=== PATIENT | male | born 1990 ===

== ENCOUNTER 2021-04-07 20:15 | Inpatient (IN) | payer BC ==
[2021-04-07] MEDS ORDERED: Sodium Chloride 0.9% 1,000 ML IV STA (20:34)
[2021-04-07] MEDS ORDERED: Sodium Chloride 0.9% 10 ML Syringe FLUSH PRN (20:34)
[2021-04-07] MEDS ORDERED: Ondansetron 4 MG/2 ML SDV IVPUSH ONE (20:34)
[2021-04-07] MEDS ORDERED: HYDROmorphone 1 MG/ML Syringe IVPUSH ONE (20:36)
--- NOTE | 2021-04-07 20:45 | EDM.PDOC ---
ED HPI GENERAL MEDICAL PROBLEM - General Chief Complaint: Abdominal Pain Stated Complaint: STOMACH PAIN/ BACK PAIN Time Seen by Provider: 04/07/21 20:21 Source of Information: Reports: Patient, Family History Limitations: Reports: No Limitations - History of Present Illness INITIAL COMMENTS - FREE TEXT/NARRATIVE: The patient presents with right upper abdominal pain. This has been going on for about a month. He has had 3 bad episodes. His pain tonight is 10/10. He tried eating some oatmeal and he vomited after that. He thought it may have been constipation. He has been drinking lots of water and taking a stool softener but that did not help. He has no fever, chills, cough, chest pain, shortness of breath, diarrhea or dysuria. He still has his appendix and gallbla dder. Onset: Gradual Duration: Week(s): (4) Location: Reports: Abdomen Quality: Reports: Sharp Severity: Severe Improves with: Reports: None Worsens with: Reports: None Associated Symptoms: Reports: Nausea/Vomiting. Denies: Chest Pain, Cough, Fever/Chills, Headaches, Shortness of Breath Right Upper Abdomen Pain Score (Numeric/FACES): 10 - Related Data Allergies Allergy/AdvReac Type Severity Reaction Status Date / Time amoxicillin Allergy Cannot Verified 04/07/21 20:29 Remember Home Meds: Home Meds Escitalopram Oxalate [Lexapro] 10 mg PO DAILY 04/07/21 [History] Lactobacillus Acidophilus [Probiotic] 1 each PO DAILY 04/07/21 [History] Multivitamin 1 each PO DAILY 04/07/21 [History] Past Medical History - Past Health History Medical/Surgical History: Denies Medical/Surgical History Psychiatric History: Reports: Anxiety, Depression Social & Family History - Tobacco Use Tobacco Use Status *Q: Unknown Ever Used Tobacco Second Hand Smoke Exposure: No - Recreational Drug Use Recreational Drug Use: No ED ROS GENERAL - Review of Systems Review Of Systems: See Below Constitutional: Reports: No Symptoms HEENT: Reports: No Symptoms Respiratory: Reports: No Symptoms Cardiovascular: Reports: No Symptoms Endocrine: Reports: No Symptoms GI/Abdominal: Reports: Abdominal Pain, Nausea, Vomiting. Denies: Diarrhea : Reports: No Symptoms Musculoskeletal: Reports: No Symptoms ED EXAM, GI/ABD - Physical Exam Exam: See Below Exam Limited By: No Limitations General Appearance: Alert, No Apparent Distress Ears: Normal External Exam Nose: Normal Inspection Head: Atraumatic, Normocephalic Neck: Normal Inspection Respiratory/Chest: No Respiratory Distress, Lungs Clear, Normal Breath Sounds Cardiovascular: Regular Rate, Rhythm, No Edema, No Murmur GI/Abdominal Exam: Soft, No Organomegaly, No Mass, Tender (Moderate tenderness to the right upper abdomen) Extremities: Normal Inspection Course - Vital Signs Last Recorded V/S: Last Vital Signs Temp 96.9 F 04/07/21 20:21 Pulse 84 04/07/21 20:21 Resp 18 04/07/21 20:21 BP 163/110 H 04/07/21 20:21 Pulse Ox 97 04/07/21 20:21 - Orders/Labs/Meds Orders: Active Orders 24 hr Category Date Time Status Accu Check [Blood Glucose Check, Bedside] [RC] ONETIME Care 04/08/21 00:00 Active Peripheral IV Care [RC] . DIRECTED Care 04/07/21 20:34 Active Abdomen Ltd [US] Stat Exams 04/07/21 20:34 Taken Abdomen Pelvis wo Cont [CT] Stat Exams 04/07/21 22:56 Taken CORONAVIRUS COVID-19 RENATA [MOLEC] Stat Lab 04/08/21 00:29 Ordered LIPID PANEL [CHEM] Stat Lab 04/08/21 00:36 Ordered TSH [CHEM] Stat Lab 04/08/21 00:27 Ordered Insulin Regular, Human [HumuLIN R] 100 unit Med 04/08/21 01:00 Ordered Sodium Chloride 0.9% [Normal Saline] 99 ml IV TITRATE Sodium Chloride 0.9% [Saline Flush] Med 04/07/21 20:34 Active 10 ml FLUSH ASDIRECTED PRN ED Antiemetic Medication Reflex [OM.PC] Stat Oth 04/07/21 20:35 Ordered Peripheral IV Insertion Adult [OM.PC] Stat Oth 04/07/21 20:34 Ordered Medication Orders Insulin Human Regular 100 unit (/ Sodium Chloride) 100 mls @ 2 mls/hr IV TITRATE ANAMARIA; Protocol Sodium Chloride (Sodium Chloride 0.9% 10 Ml Syringe) 10 ml FLUSH ASDIRECTED PRN PRN Reason: Keep Vein Open Last Admin: 04/07/21 20:51 Dose: 10 ml Documented by: JASBIR Labs: Laboratory Tests 04/07/21 04/07/21 04/07/21 Range/Units 20:41 20:41 20:41 WBC 9.82 H (4.23-9.07) K/mm3 RBC 5.00 (4.63-6.08) M/mm3 Hgb 18.1 H (13.7-17.5) gm/dl Hct 42.2 (40.1-51.0) % MCV 84.4 (79.0-92.2) fl MCH 36.2 H (25.7-32.2) pg MCHC 42.9 H (32.2-35.5) g/dl RDW Std Deviation 40.9 (35.1-43.9) fL Plt Count 329 (163-337) K/mm3 MPV 10.2 (9.4-12.3) fl Neut % (Auto) 69.8 H (34.0-67.9) % Lymph % (Auto) 6.4 L (21.8-53.1) % [place] % (Auto) 21.4 H (5.3-12.2) % Eos % (Auto) 1.7 (0.8-7.0) Baso % (Auto) 0.4 (0.1-1.2) % Neut # (Auto) 6.85 H (1.78-5.38) K/mm3 Lymph # (Auto) 0.63 L (1.32-3.57) K/mm3 [place] # (Auto) 2.10 H (0.30-0.82) K/mm3 Eos # (Auto) 0.17 (0.04-0.54) K/mm3 Baso # (Auto) 0.04 (0.01-0.08) K/mm3 Manual Slide Review Abnormal smear VBG pH (7.30-7.40) Sodium 126 L (136-145) mEq/L Potassium 3.7 (3.5-5.1) mEq/L Chloride 90 L (98-107) mEq/L Carbon Dioxide TNP Anion Gap TNP BUN TNP Creatinine TNP Est Cr Clr Drug Dosing TNP Estimated GFR (MDRD) TNP BUN/Creatinine Ratio TNP Glucose 471 H* (70-99) mg/dL POC Glucose (70-99) mg/dL Hemoglobin A1c TNP Calcium TNP Total Bilirubin TNP AST TNP ALT TNP Alkaline Phosphatase TNP Total Protein TNP Albumin TNP Globulin TNP Albumin/Globulin Ratio TNP Lipase 643 H (73-393) U/L Urine Color (Yellow) Urine Appearance (Clear) Urine pH (5.0-8.0) Ur Specific [place] (1.005-1.030) Urine Protein (Negative) Urine Glucose (UA) (Negative) Urine Ketones (Negative) Urine Occult Blood (Negative) Urine Nitrite (Negative) Urine Bilirubin (Negative) Urine Urobilinogen (0.2-1.0) Ur Leukocyte Esterase (Negative) U Hyaline Cast (Auto) (0-5) /lpf Urine RBC (0-5) /hpf Urine WBC (0-5) /hpf Ur Squamous Epith Cells (0-5) /hpf Amorphous Sediment (NOT SEEN) /hpf Urine Bacteria (FEW) /hpf Urine Mucus (FEW) /hpf 04/07/21 04/07/21 04/08/21 Range/Units 20:43 23:40 00:21 WBC (4.23-9.07) K/mm3 RBC (4.63-6.08) M/mm3 Hgb (13.7-17.5) gm/dl Hct (40.1-51.0) % MCV (79.0-92.2) fl MCH (25.7-32.2) pg MCHC (32.2-35.5) g/dl RDW Std Deviation (35.1-43.9) fL Plt Count (163-337) K/mm3 MPV (9.4-12.3) fl Neut % (Auto) (34.0-67.9) % Lymph % (Auto) (21.8-53.1) % [place] % (Auto) (5.3-12.2) % Eos % (Auto) (0.8-7.0) Baso % (Auto) (0.1-1.2) % Neut # (Auto) (1.78-5.38) K/mm3 Lymph # (Auto) (1.32-3.57) K/mm3 [place] # (Auto) (0.30-0.82) K/mm3 Eos # (Auto) (0.04-0.54) K/mm3 Baso # (Auto) (0.01-0.08) K/mm3 Manual Slide Review VBG pH 7.37 (7.30-7.40) Sodium (136-145) mEq/L Potassium (3.5-5.1) mEq/L Chloride (98-107) mEq/L Carbon Dioxide Anion Gap BUN Creatinine Est Cr Clr Drug Dosing Estimated GFR (MDRD) BUN/Creatinine Ratio Glucose (70-99) mg/dL POC Glucose 246 H (70-99) mg/dL Hemoglobin A1c Calcium Total Bilirubin AST ALT Alkaline Phosphatase Total Protein Albumin Globulin Albumin/Globulin Ratio Lipase (73-393) U/L Urine Color Yellow (Yellow) Urine Appearance Clear (Clear) Urine pH 5.5 (5.0-8.0) Ur Specific [place] > or = 1.030 (1.005-1.030) Urine Protein 2+ H (Negative) Urine Glucose (UA) 2+ H (Negative) Urine Ketones 1+ H (Negative) Urine Occult Blood Trace-intact H (Negative) Urine Nitrite Negative (Negative) Urine Bilirubin Negative (Negative) Urine Urobilinogen 0.2 (0.2-1.0) Ur Leukocyte Esterase Negative (Negative) U Hyaline Cast (Auto) 0-5 (0-5) /lpf Urine RBC 5-10 H (0-5) /hpf Urine WBC 0-5 (0-5) /hpf Ur Squamous Epith Cells 0-5 (0-5) /hpf Amorphous Sediment Few H (NOT SEEN) /hpf Urine Bacteria Few (FEW) /hpf Urine Mucus Few (FEW) /hpf Meds: Medications Generic Name Dose Route Start Last Admin Trade Name Freq PRN Reason Stop Dose Admin Insulin Human Regular 100 unit 100 mls @ 2 mls/hr 04/08/21 01:00 / Sodium Chloride IV TITRATE ANAMARIA Protocol 2 UNIT/HR Sodium Chloride 10 ml 04/07/21 20:34 04/07/21 20:51 Sodium Chloride 0.9% 10 Ml Syringe FLUSH 10 ml ASDIRECTED PRN Administration Keep Vein Open Discontinued Medications Generic Name Dose Route Start Last Admin Trade Name Freq PRN Reason Stop Dose Admin Hydromorphone HCl 1 mg 04/07/21 20:36 04/07/21 20:50 Hydromorphone 1 Mg/Ml Syringe IVPUSH 04/07/21 20:37 1 mg ONETIME ONE Administration Hydromorphone HCl 1 mg 04/08/21 00:15 04/08/21 00:22 Hydromorphone 1 Mg/Ml Syringe IVPUSH 04/08/21 00:16 1 mg ONETIME ONE Administration Sodium Chloride 1,000 mls @ 1,000 mls/hr 04/07/21 20:34 04/07/21 20:49 Normal Saline IV 04/07/21 21:33 1,000 mls/hr .BOLUS STA Administration Insulin Human Regular 10 unit 04/07/21 22:56 04/07/21 23:19 Insulin Regular, Human 100 Units/Ml 3 Ml Vial SUBCUT 04/07/21 22:57 10 unit ONETIME ONE Administration Ondansetron HCl 4 mg 04/07/21 20:34 04/07/21 20:49 Ondansetron 4 Mg/2 Ml Sdv IVPUSH 04/07/21 20:35 4 mg ONETIME ONE Administration - Re-Assessments/Exams Free Text/Narrative Re-Assessment/Exam: 04/07/21 20:46 I ordered an IV NS 1L bolus, zofran 4mg IV, dilaudid 1mg IV, labs, UA and an US of his gallbladder. 04/07/21 23:13 Lab called and they said his blood is severely lypemic and they are not sure if they can run all the labs. His WBC was slightly elevated at 9.82. His Na was low at 126. His K was normal at 3.7. His glucose was very high at 471. His lipase was elevated at 643. His US shows hepatomegaly and diffuse hepatic steatosis. No other acute pathology is appreciated, within the limits of this examination. I have ordered a glycosilated hemoglobin. They called and said they cannot get that. He has new onset type II diabetes. I will give him insulin R 10 units subcutaneous. I have also ordered a CT of his abdomen and pelvis without contrast to look more at his liver and pancreas. 04/08/21 00:[address] shows acute pancreatisis changes surrounding proximal pancreas. Hepatic steatosis. His repeat blood sugar after the insulin was 246. I called Dr Godoy and he agreed to the admission. He did want a insulin drip started with D10NS also running. Departure - Departure Time of Disposition: 01:00 Disposition: Admitted As Inpatient 64 Condition: Serious Clinical Impression: Hyperglycemia, High triglycerides, Hepatic steatosis Pancreatitis Qualifiers: Chronicity: acute Pancreatitis type: other Acute pancreatitis complication: unspecified Qualified Code(s): K85.80 - Other acute pancreatitis without necrosis or infection - Discharge Information Referrals: Skip Squires PA-C [Primary Care Provider] - Forms: ED Department Discharge Sepsis Event Note (ED) - Focused Exam Vital Signs: Vital Signs Temp Pulse Resp BP Pulse Ox 04/07/21 20:21 96.9 F 84 18 163/110 H 97 - My Orders Last 24 Hours: My Active Orders 04/07/21 20:34 Peripheral IV Care [RC] . DIRECTED Abdomen Ltd [US] Stat Sodium Chloride 0.9% [Saline Flush] 10 ml FLUSH ASDIRECTED PRN Peripheral IV Insertion Adult [OM.PC] Stat 04/07/21 20:35 ED Antiemetic Medication Reflex [OM.PC] Stat 04/07/21 22:56 Abdomen Pelvis wo Cont [CT] Stat 04/08/21 00:00 Accu Check [Blood Glucose Check, Bedside] [RC] ONETIME 04/08/21 00:27 TSH [CHEM] Stat 04/08/21 00:29 CORONAVIRUS COVID-19 RENATA [MOLEC] Stat 04/08/21 00:36 LIPID PANEL [CHEM] Stat 04/08/21 01:00 Insulin Regular, Human [HumuLIN R] 100 unit Sodium Chloride 0.9% [Normal Saline] 99 ml IV TITRATE - Assessment/Plan Last 24 Hours: My Active Orders 04/07/21 20:34 Peripheral IV Care [RC] . DIRECTED Abdomen Ltd [US] Stat Sodium Chloride 0.9% [Saline Flush] 10 ml FLUSH ASDIRECTED PRN Peripheral IV Insertion Adult [OM.PC] Stat 04/07/21 20:35 ED Antiemetic Medication Reflex [OM.PC] Stat 04/07/21 22:56 Abdomen Pelvis wo Cont [CT] Stat 04/08/21 00:00 Accu Check [Blood Glucose Check, Bedside] [RC] ONETIME 04/08/21 00:27 TSH [CHEM] Stat 04/08/21 00:29 CORONAVIRUS COVID-19 RENATA [MOLEC] Stat 04/08/21 00:36 LIPID PANEL [CHEM] Stat 04/08/21 01:00 Insulin Regular, Human [HumuLIN R] 100 unit Sodium Chloride 0.9% [Normal Saline] 99 ml IV TITRATE
[2021-04-07] MEDS ORDERED: Insulin Regular, Human 100 Units/ML 3 ML Vial SUBCUT ONE (22:56)
[2021-04-08] MEDS ORDERED: HYDROmorphone 1 MG/ML Syringe IVPUSH ONE (00:15)
[2021-04-08] MEDS ORDERED: Sodium Chloride 0.9% 100 ML ONE (01:04)
[2021-04-08] MEDS ORDERED: Ondansetron 4 MG/2 ML SDV IVPUSH PRN (02:10)
[2021-04-08] MEDS ORDERED: Acetaminophen 325 MG Tab PO PRN (02:13)
[2021-04-08] MEDS ORDERED: Sodium Chloride 23.4% 154 MEQ in Dextrose 10% in Water 1,000 ML IV SCH ×2 (02:30)
[2021-04-08] MEDS: HYDROmorphone 1 MG/ML Syringe IVPUSH PRN ×6 (02:38→13:17)
[2021-04-08] MEDS: Sodium Chloride 23.4% 154 MEQ in Dextrose 10% in Water 1,000 ML IV SCH ×4 (03:32→09:00)
[2021-04-08] MEDS ORDERED: Fenofibrate Nanocrystallized 145 MG Tab PO SCH (06:00)
[2021-04-08] MEDS ORDERED: hydrALAZINE 20 MG/ML SDV IVPUSH PRN (06:28)
[2021-04-08] MEDS ORDERED: amLODIPine 5 MG Tab PO ONE (06:45)
--- NOTE | 2021-04-08 06:59 | US ---
Limited abdominal ultrasound: Multiple real-time images were obtained of the upper right abdomen. Comparison: No prior abdominal imaging is available. Findings: Exam is suboptimal due to diffuse gas which limits the study. Liver is diffusely echogenic and enlarged most likely representing fatty infiltration. Gallbladder shows no definite gallstones. No gallbladder wall thickening is seen. Right kidney shows no hydronephrosis and measures 12.6 cm. Main portal vein shows normal hepatopedal flow. Pancreas is poorly seen. Biliary ducts are poorly seen. Impression: 1. Suboptimal study as noted above. 2. Fatty infiltration and mild enlargement of the liver. 3. No other gross abnormality is appreciated. Diagnostic code #2 I agree with preliminary report from [facility], finalized on 04/07/21, 11:10 PM CDT, code 1
--- NOTE | 2021-04-08 07:20 | CT ---
CT abdomen and pelvis Technique: Multiple axial sections were obtained from above the dome of the diaphragm inferiorly through the pubic symphysis. Intravenous contrast was utilized. No oral contrast has been given. Reconstructed coronal and sagittal images were obtained. Comparison: Prior abdominal ultrasound performed earlier on the same day (9:15 PM). Findings: Visualized lung bases show nothing acute. Liver shows diffuse diminished density compatible with fatty infiltration. Spleen size is normal. Adrenal glands show no nodule. Kidneys show no abnormal calcifications. No abnormal calcifications are seen along the course of the ureters. Inflammatory change is noted around the head of the pancreas compatible with pancreatitis. Abdominal aorta shows no aneurysm. No retroperitoneal adenopathy or mesenteric abnormalities are seen. Small fat-containing umbilical hernia is noted. No pelvic mass or adenopathy is seen. Appendix is seen which is normal. Bone window settings were reviewed. Two screws are noted within the left femoral head with slight deformity compatible with old probable fracture. No acute osseous abnormality is appreciated. Impression: 1. Inflammatory change around the head of the pancreas compatible with pancreatitis. 2. Fatty infiltration within the liver. 3. Other findings believed to be incidental as noted above. Diagnostic code #3 I agree with preliminary report from [facility], finalized on 04/08/21, 1:10 AM CDT, code 1
[2021-04-08] MEDS ORDERED: Dextrose 5%-0.9% NaCl 1,000 ML IV SCH ×2 (07:30→10:45)
--- NOTE | 2021-04-08 08:17 | PCM.HP.2 ---
H&P History of Present Illness - General Date of Service: 04/08/21 Admit Problem/Dx: Admission Diagnosis/Problem Admission Diagnosis/Problem Hypertriglyceridemia and Acute pancreatitis Source of Information: Patient, Provider History Limitations: Reports: No Limitations - History of Present Illness Initial Comments - Free Text/Narative: Patient is a 30-year-old male with a relatively benign past medical history who presented to the [facility] emergency department around 10 PM last evening due to abdominal discomfort. Patient states that he was in his usual state of health up until the past couple of months when he started to experience upper abdominal discomfort made worse by eating. Pain has been transient and self-limiting. He has not had any associated symptoms up until yesterday. Yesterday the pain became exquisite and he began to feel nauseous and vomited several times. There was no coffee-ground emesis or bob hematemesis. No bowel habit changes. Pain is localized to the upper abdomen with occasional radiation to the back. He does not describe any other constitutional symptoms. He has never felt these symptoms before. The patient denies any recent travel or any recent sick contacts. No ingestion of undercooked foods. No known food allergies. Pain at time of admission was considered to 10 out of 10 and controlled with Dilaudid. In the emergency department it was noted that he had some mild to moderate tenderness on palpation in the upper abdomen. Laboratory studies were only notable for hyponatremia, hypochloremia and a lipase of 650. All other laboratory studies within the chemistry panel were unable to be read by the instrument due to his blood being exquisitely colonic. Imaging of the abdomen was notable for acute pancreatitis findings. No right upper quadrant pathology significant for gall sludge or gallstones. The patient has not endorsed any history of alcohol use or ingestion of poisons. The case was referred to me in the middle of the night for admission. It was recommended to the patient upon my evaluation over the phone that he be offered transfer from the emergency department to a higher level of care for likely need for a pheresis of his blood. Upon being offered the opportunity to transfer from the emergency department, the patient declined transfer and wished to begin aggressive intravascular volume repletion and insulin infusion here at [facility] and see how his condition does. Patient was then accepted for admission. Since then, the patient has been on a dextrose and normal saline infusion running at high rate. His pain is more so controlled with Dilaudid. He denies any recent nausea or vomiting. Sugars have been running between 204 100 on an insulin infusion per protocol. Unfortunately his lipase has increased from 600- 10,000. Repeat VBG is pending. Patient was not acidotic upon presentation. Upon speaking with the patient this morning, I have highly recommended that the patient be transferred for higher level of care and apheresis of his blood. Patient agrees to transfer. Awaiting bed at [facility]. 14 point review of systems was reviewed with the patient this morning and only pertinent for the above information. CODE STATUS: Full code. Right Upper Abdomen Pain Score (Numeric/FACES): 9 - Related Data Allergies/Adverse Reactions: Allergies Allergy/AdvReac Type Severity Reaction Status Date / Time amoxicillin Allergy Cannot Verified 04/08/21 01:52 Remember Home Medications: Home Meds Escitalopram Oxalate [Lexapro] 10 mg PO DAILY 04/07/21 [History] Lactobacillus Acidophilus [Probiotic] 1 each PO DAILY 04/07/21 [History] Multivitamin 1 each PO DAILY 04/07/21 [History] Past Medical History - Past Health History Medical/Surgical History: Denies Medical/Surgical History HEENT History: Reports: Impaired Vision Cardiovascular History: Reports: High Cholesterol Psychiatric History: Reports: Anxiety, Depression Endocrine/Metabolic History: Reports: Obesity/BMI 30+ - Infectious Disease History Infectious Disease History: Reports: Chicken Pox - Past Surgical History Other Musculoskeletal Surgeries/Procedures:: 2 screws in hip Social & Family History - Family History Family Medical History: No Pertinent Family History - Tobacco Use Tobacco Use Status *Q: Former Tobacco User Used Tobacco, but Quit: Yes Month/Year Tobacco Last Used: Aug 2018 Second Hand Smoke Exposure: No - Caffeine Use Caffeine Use: Reports: None - Alcohol Use Days Per Week of Alcohol Use: 2 Number of Drinks Per Day: 6 Total Drinks Per Week: 12 - Recreational Drug Use Recreational Drug Use: No H&P Review of Systems - Review of Systems: Review Of Systems: Comprehensive ROS is negative, except as noted in HPI. Exam - Exam Exam: See Below - Vital Signs Vital Signs: Last Vital Signs Temp 96.9 F 04/08/21 07:57 Pulse 79 04/08/21 07:57 Resp 18 04/08/21 07:57 BP 159/98 H 04/08/21 07:57 Pulse Ox 92 L 04/08/21 07:57 Weight: 356 lb 12.8 oz - Exam Physical Exam Comments:: General: Awake and alert, in no apparent distress. Nontoxic-appearing. HEENT: Normocephalic, atraumatic. Extra ocular muscles intact. Pupils equal and reactive to light. Nares are patent. Oropharynx clear without erythema or exudate. Tongue is midline. Neck: Supple without lymphadenopathy. No goiter. Trachea midline. Heart: Regular rate and rhythm. S1 and S2 heard without murmur or extrasystoles. Lungs: Clear to auscultation bilaterally. No wheezing, rales, rhonchi. Abdomen: Morbidly obese soft, tender to deep palpation in the epigastric area without rebound or guarding, nondistended. Positive bowel sounds. No CVA tenderness. No suprapubic tenderness. Extremities: Warm and perfused. No clubbing, cyanosis, or edema. Integument: No obvious rash or jaundice. No lymphadenopathy. No skin tags or fatty deposits Neurologic: Cranial nerves II through XII grossly intact. No obvious gross ladonna r or sensory deficits. Musculoskeletal: No obvious range of motion deficits, joint effusions or joint deformities. Psychiatric: Normal mood and affect. - Patient Data Lab Results Last 24 hrs: Laboratory Results - last 24 hr 04/07/21 04/07/21 04/07/21 Range/Units 20:41 20:41 20:41 WBC 9.82 H (4.23-9.07) K/mm3 RBC 5.00 (4.63-6.08) M/mm3 Hgb 18.1 H (13.7-17.5) gm/dl Hct 42.2 (40.1-51.0) % MCV 84.4 (79.0-92.2) fl MCH 36.2 H (25.7-32.2) pg MCHC 42.9 H (32.2-35.5) g/dl RDW Std Deviation 40.9 (35.1-43.9) fL Plt Count 329 (163-337) K/mm3 MPV 10.2 (9.4-12.3) fl Neut % (Auto) 69.8 H (34.0-67.9) % Lymph % (Auto) 6.4 L (21.8-53.1) % Whiteside % (Auto) 21.4 H (5.3-12.2) % Eos % (Auto) 1.7 (0.8-7.0) Baso % (Auto) 0.4 (0.1-1.2) % Neut # (Auto) 6.85 H (1.78-5.38) K/mm3 Lymph # (Auto) 0.63 L (1.32-3.57) K/mm3 Whiteside # (Auto) 2.10 H (0.30-0.82) K/mm3 Eos # (Auto) 0.17 (0.04-0.54) K/mm3 Baso # (Auto) 0.04 (0.01-0.08) K/mm3 Manual Slide Review Abnormal smear VBG pH (7.30-7.40) Sodium 126 L (136-145) mEq/L Potassium 3.7 (3.5-5.1) mEq/L Chloride 90 L (98-107) mEq/L Carbon Dioxide TNP Anion Gap TNP BUN TNP Creatinine TNP Est Cr Clr Drug Dosing TNP Estimated GFR (MDRD) TNP BUN/Creatinine Ratio TNP Glucose 471 H* (70-99) mg/dL POC Glucose (70-99) mg/dL Hemoglobin A1c TNP Calcium TNP Total Bilirubin TNP AST TNP ALT TNP Alkaline Phosphatase TNP Total Protein TNP Albumin TNP Globulin TNP Albumin/Globulin Ratio TNP Triglycerides Cholesterol LDL Cholesterol Direct (<100) mg/dL HDL Cholesterol Lipase 643 H (73-393) U/L TSH 3rd Generation (0.358-3.74) uIU/mL Urine Color (Yellow) Urine Appearance (Clear) Urine pH (5.0-8.0) Ur Specific Mona (1.005-1.030) Urine Protein (Negative) Urine Glucose (UA) (Negative) Urine Ketones (Negative) Urine Occult Blood (Negative) Urine Nitrite (Negative) Urine Bilirubin (Negative) Urine Urobilinogen (0.2-1.0) Ur Leukocyte Esterase (Negative) U Hyaline Cast (Auto) (0-5) /lpf Urine RBC (0-5) /hpf Urine WBC (0-5) /hpf Ur Squamous Epith Cells (0-5) /hpf Amorphous Sediment (NOT SEEN) /hpf Urine Bacteria (FEW) /hpf Urine Mucus (FEW) /hpf SARS-CoV-2 RNA (RENATA) (NEGATIVE) 04/07/21 04/07/21 04/08/21 Range/Units 20:43 23:40 00:21 WBC (4.23-9.07) K/mm3 RBC (4.63-6.08) M/mm3 Hgb (13.7-17.5) gm/dl Hct (40.1-51.0) % MCV (79.0-92.2) fl MCH (25.7-32.2) pg MCHC (32.2-35.5) g/dl RDW Std Deviation (35.1-43.9) fL Plt Count (163-337) K/mm3 MPV (9.4-12.3) fl Neut % (Auto) (34.0-67.9) % Lymph % (Auto) (21.8-53.1) % Whiteside % (Auto) (5.3-12.2) % Eos % (Auto) (0.8-7.0) Baso % (Auto) (0.1-1.2) % Neut # (Auto) (1.78-5.38) K/mm3 Lymph # (Auto) (1.32-3.57) K/mm3 Whiteside # (Auto) (0.30-0.82) K/mm3 Eos # (Auto) (0.04-0.54) K/mm3 Baso # (Auto) (0.01-0.08) K/mm3 Manual Slide Review VBG pH 7.37 (7.30-7.40) Sodium (136-145) mEq/L Potassium (3.5-5.1) mEq/L Chloride (98-107) mEq/L Carbon Dioxide Anion Gap BUN Creatinine Est Cr Clr Drug Dosing Estimated GFR (MDRD) BUN/Creatinine Ratio Glucose (70-99) mg/dL POC Glucose 246 H (70-99) mg/dL Hemoglobin A1c Calcium Total Bilirubin AST ALT Alkaline Phosphatase Total Protein Albumin Globulin Albumin/Globulin Ratio Triglycerides Cholesterol LDL Cholesterol Direct (<100) mg/dL HDL Cholesterol Lipase (73-393) U/L TSH 3rd Generation (0.358-3.74) uIU/mL Urine Color Yellow (Yellow) Urine Appearance Clear (Clear) Urine pH 5.5 (5.0-8.0) Ur Specific Mona > or = 1.030 (1.005-1.030) Urine Protein 2+ H (Negative) Urine Glucose (UA) 2+ H (Negative) Urine Ketones 1+ H (Negative) Urine Occult Blood Trace-intact H (Negative) Urine Nitrite Negative (Negative) Urine Bilirubin Negative (Negative) Urine Urobilinogen 0.2 (0.2-1.0) Ur Leukocyte Esterase Negative (Negative) U Hyaline Cast (Auto) 0-5 (0-5) /lpf Urine RBC 5-10 H (0-5) /hpf Urine WBC 0-5 (0-5) /hpf Ur Squamous Epith Cells 0-5 (0-5) /hpf Amorphous Sediment Few H (NOT SEEN) /hpf Urine Bacteria Few (FEW) /hpf Urine Mucus Few (FEW) /hpf SARS-CoV-2 RNA (RENATA) (NEGATIVE) 04/08/21 04/08/21 04/08/21 Range/Units 00:27 00:29 00:36 WBC (4.23-9.07) K/mm3 RBC (4.63-6.08) M/mm3 Hgb (13.7-17.5) gm/dl Hct (40.1-51.0) % MCV (79.0-92.2) fl MCH (25.7-32.2) pg MCHC (32.2-35.5) g/dl RDW Std Deviation (35.1-43.9) fL Plt Count (163-337) K/mm3 MPV (9.4-12.3) fl Neut % (Auto) (34.0-67.9) % Lymph % (Auto) (21.8-53.1) % Whiteside % (Auto) (5.3-12.2) % Eos % (Auto) (0.8-7.0) Baso % (Auto) (0.1-1.2) % Neut # (Auto) (1.78-5.38) K/mm3 Lymph # (Auto) (1.32-3.57) K/mm3 Whiteside # (Auto) (0.30-0.82) K/mm3 Eos # (Auto) (0.04-0.54) K/mm3 Baso # (Auto) (0.01-0.08) K/mm3 Manual Slide Review VBG pH (7.30-7.40) Sodium (136-145) mEq/L Potassium (3.5-5.1) mEq/L Chloride (98-107) mEq/L Carbon Dioxide Anion Gap BUN Creatinine Est Cr Clr Drug Dosing Estimated GFR (MDRD) BUN/Creatinine Ratio Glucose (70-99) mg/dL POC Glucose (70-99) mg/dL Hemoglobin A1c Calcium Total Bilirubin AST ALT Alkaline Phosphatase Total Protein Albumin Globulin Albumin/Globulin Ratio Triglycerides TNP Cholesterol TNP LDL Cholesterol Direct 137 H* (<100) mg/dL HDL Cholesterol TNP Lipase (73-393) U/L TSH 3rd Generation 2.728 (0.358-3.74) uIU/mL Urine Color (Yellow) Urine Appearance (Clear) Urine pH (5.0-8.0) Ur Specific Mona (1.005-1.030) Urine Protein (Negative) Urine Glucose (UA) (Negative) Urine Ketones (Negative) Urine Occult Blood (Negative) Urine Nitrite (Negative) Urine Bilirubin (Negative) Urine Urobilinogen (0.2-1.0) Ur Leukocyte Esterase (Negative) U Hyaline Cast (Auto) (0-5) /lpf Urine RBC (0-5) /hpf Urine WBC (0-5) /hpf Ur Squamous Epith Cells (0-5) /hpf Amorphous Sediment (NOT SEEN) /hpf Urine Bacteria (FEW) /hpf Urine Mucus (FEW) /hpf SARS-CoV-2 RNA (RENATA) Negative (NEGATIVE) 04/08/21 04/08/21 04/08/21 Range/Units 03:37 04:31 05:33 WBC (4.23-9.07) K/mm3 RBC (4.63-6.08) M/mm3 Hgb (13.7-17.5) gm/dl Hct (40.1-51.0) % MCV (79.0-92.2) fl MCH (25.7-32.2) pg MCHC (32.2-35.5) g/dl RDW Std Deviation (35.1-43.9) fL Plt Count (163-337) K/mm3 MPV (9.4-12.3) fl Neut % (Auto) (34.0-67.9) % Lymph % (Auto) (21.8-53.1) % Whiteside % (Auto) (5.3-12.2) % Eos % (Auto) (0.8-7.0) Baso % (Auto) (0.1-1.2) % Neut # (Auto) (1.78-5.38) K/mm3 Lymph # (Auto) (1.32-3.57) K/mm3 Whiteside # (Auto) (0.30-0.82) K/mm3 Eos # (Auto) (0.04-0.54) K/mm3 Baso # (Auto) (0.01-0.08) K/mm3 Manual Slide Review VBG pH (7.30-7.40) Sodium (136-145) mEq/L Potassium (3.5-5.1) mEq/L Chloride (98-107) mEq/L Carbon Dioxide Anion Gap BUN Creatinine Est Cr Clr Drug Dosing Estimated GFR (MDRD) BUN/Creatinine Ratio Glucose (70-99) mg/dL POC Glucose 272 H 322 H 333 H (70-99) mg/dL Hemoglobin A1c Calcium Total Bilirubin AST ALT Alkaline Phosphatase Total Protein Albumin Globulin Albumin/Globulin Ratio Triglycerides Cholesterol LDL Cholesterol Direct (<100) mg/dL HDL Cholesterol Lipase (73-393) U/L TSH 3rd Generation (0.358-3.74) uIU/mL Urine Color (Yellow) Urine Appearance (Clear) Urine pH (5.0-8.0) Ur Specific Mona (1.005-1.030) Urine Protein (Negative) Urine Glucose (UA) (Negative) Urine Ketones (Negative) Urine Occult Blood (Negative) Urine Nitrite (Negative) Urine Bilirubin (Negative) Urine Urobilinogen (0.2-1.0) Ur Leukocyte Esterase (Negative) U Hyaline Cast (Auto) (0-5) /lpf Urine RBC (0-5) /hpf Urine WBC (0-5) /hpf Ur Squamous Epith Cells (0-5) /hpf Amorphous Sediment (NOT SEEN) /hpf Urine Bacteria (FEW) /hpf Urine Mucus (FEW) /hpf SARS-CoV-2 RNA (RENATA) (NEGATIVE) 04/08/21 04/08/21 04/08/21 Range/Units 06:36 06:41 06:41 WBC (4.23-9.07) K/mm3 RBC (4.63-6.08) M/mm3 Hgb (13.7-17.5) gm/dl Hct (40.1-51.0) % MCV (79.0-92.2) fl MCH (25.7-32.2) pg MCHC (32.2-35.5) g/dl RDW Std Deviation (35.1-43.9) fL Plt Count (163-337) K/mm3 MPV (9.4-12.3) fl Neut % (Auto) (34.0-67.9) % Lymph % (Auto) (21.8-53.1) % Whiteside % (Auto) (5.3-12.2) % Eos % (Auto) (0.8-7.0) Baso % (Auto) (0.1-1.2) % Neut # (Auto) (1.78-5.38) K/mm3 Lymph # (Auto) (1.32-3.57) K/mm3 Whiteside # (Auto) (0.30-0.82) K/mm3 Eos # (Auto) (0.04-0.54) K/mm3 Baso # (Auto) (0.01-0.08) K/mm3 Manual Slide Review VBG pH (7.30-7.40) Sodium 130 L (136-145) mEq/L Potassium 3.8 (3.5-5.1) mEq/L Chloride 96 L (98-107) mEq/L Carbon Dioxide TNP Anion Gap TNP BUN TNP Creatinine TNP Est Cr Clr Drug Dosing TNP Estimated GFR (MDRD) TNP BUN/Creatinine Ratio TNP Glucose 523 H* (70-99) mg/dL POC Glucose 331 H (70-99) mg/dL Hemoglobin A1c Calcium TNP Total Bilirubin TNP AST TNP ALT TNP Alkaline Phosphatase TNP Total Protein TNP Albumin TNP Globulin TNP Albumin/Globulin Ratio TNP Triglycerides Cholesterol LDL Cholesterol Direct (<100) mg/dL HDL Cholesterol Lipase 28764 H (73-393) U/L TSH 3rd Generation (0.358-3.74) uIU/mL Urine Color (Yellow) Urine Appearance (Clear) Urine pH (5.0-8.0) Ur Specific Mona (1.005-1.030) Urine Protein (Negative) Urine Glucose (UA) (Negative) Urine Ketones (Negative) Urine Occult Blood (Negative) Urine Nitrite (Negative) Urine Bilirubin (Negative) Urine Urobilinogen (0.2-1.0) Ur Leukocyte Esterase (Negative) U Hyaline Cast (Auto) (0-5) /lpf Urine RBC (0-5) /hpf Urine WBC (0-5) /hpf Ur Squamous Epith Cells (0-5) /hpf Amorphous Sediment (NOT SEEN) /hpf Urine Bacteria (FEW) /hpf Urine Mucus (FEW) /hpf SARS-CoV-2 RNA (RENATA) (NEGATIVE) 04/08/21 Range/Units 07:31 WBC (4.23-9.07) K/mm3 RBC (4.63-6.08) M/mm3 Hgb (13.7-17.5) gm/dl Hct (40.1-51.0) % MCV (79.0-92.2) fl MCH (25.7-32.2) pg MCHC (32.2-35.5) g/dl RDW Std Deviation (35.1-43.9) fL Plt Count (163-337) K/mm3 MPV (9.4-12.3) fl Neut % (Auto) (34.0-67.9) % Lymph % (Auto) (21.8-53.1) % Whiteside % (Auto) (5.3-12.2) % Eos % (Auto) (0.8-7.0) Baso % (Auto) (0.1-1.2) % Neut # (Auto) (1.78-5.38) K/mm3 Lymph # (Auto) (1.32-3.57) K/mm3 Whiteside # (Auto) (0.30-0.82) K/mm3 Eos # (Auto) (0.04-0.54) K/mm3 Baso # (Auto) (0.01-0.08) K/mm3 Manual Slide Review VBG pH (7.30-7.40) Sodium (136-145) mEq/L Potassium (3.5-5.1) mEq/L Chloride (98-107) mEq/L Carbon Dioxide Anion Gap BUN Creatinine Est Cr Clr Drug Dosing Estimated GFR (MDRD) BUN/Creatinine Ratio Glucose (70-99) mg/dL POC Glucose 314 H (70-99) mg/dL Hemoglobin A1c Calcium Total Bilirubin AST ALT Alkaline Phosphatase Total Protein Albumin Globulin Albumin/Globulin Ratio Triglycerides Cholesterol LDL Cholesterol Direct (<100) mg/dL HDL Cholesterol Lipase (73-393) U/L TSH 3rd Generation (0.358-3.74) uIU/mL Urine Color (Yellow) Urine Appearance (Clear) Urine pH (5.0-8.0) Ur Specific Mona (1.005-1.030) Urine Protein (Negative) Urine Glucose (UA) (Negative) Urine Ketones (Negative) Urine Occult Blood (Negative) Urine Nitrite (Negative) Urine Bilirubin (Negative) Urine Urobilinogen (0.2-1.0) Ur Leukocyte Esterase (Negative) U Hyaline Cast (Auto) (0-5) /lpf Urine RBC (0-5) /hpf Urine WBC (0-5) /hpf Ur Squamous Epith Cells (0-5) /hpf Amorphous Sediment (NOT SEEN) /hpf Urine Bacteria (FEW) /hpf Urine Mucus (FEW) /hpf SARS-CoV-2 RNA (RENATA) (NEGATIVE) Result Diagrams: 04/07/21 20:41 04/08/21 06:41 Imaging Impressions Last 24 hrs: CT and ultrasound imaging personally reviewed. Acute pancreatitis findings noted. Sepsis Event Note - Evaluation Sepsis Screening Result: No Definite Risk - Focused Exam Vital Signs: Vital Signs Temp Pulse Pulse Resp BP BP BP 04/08/21 07:57 96.9 F 79 18 159/98 H 04/08/21 06:55 183/97 H 04/08/21 06:41 04/08/21 04:01 67 189/114 H 04/08/21 04:00 97.2 F 83 14 04/08/21 03:31 71 04/08/21 03:30 72 04/08/21 03:16 71 163/96 H 04/08/21 03:15 76 04/08/21 03:01 73 165/95 H 04/08/21 03:00 74 04/08/21 02:31 76 04/08/21 02:30 85 04/08/21 02:16 96.9 F 78 12 180/104 H 04/08/21 02:15 72 04/08/21 02:07 75 04/07/21 20:21 96.9 F 84 18 163/110 H Pulse Ox Pulse Ox 04/08/21 07:57 92 L 04/08/21 06:55 04/08/21 06:41 90 L 04/08/21 04:01 98 04/08/21 04:00 96 04/08/21 03:31 98 04/08/21 03:30 97 93 L 04/08/21 03:16 96 04/08/21 03:15 96 04/08/21 03:01 96 04/08/21 03:00 95 04/08/21 02:31 88 L 04/08/21 02:30 86 L 04/08/21 02:16 87 L 04/08/21 02:15 90 L 04/08/21 02:07 90 L 04/07/21 20:21 97 Problem List Initiated/Reviewed/Updated: Yes Orders Last 24hrs: Active Orders 24 hr Category Date Time Status Patient Status [ADT] Routine ADT 04/08/21 01:10 Active Bedrest Bathroom Privileges [RC] ASDIRECTED Care 04/08/21 02:16 Active Blood Glucose Check, Bedside [] Q1HR Care 04/08/21 04:29 Active Oxygen Therapy [RC] ASDIRECTED Care 04/08/21 04:12 Active Specimens to Lab, Nursing [] ASDIRECTED Care 04/08/21 06:02 Active NPO [Nothing Per Oral Diet] [DIET] Diet 04/08/21 Breakfast Active CMP [COMPREHENSIVE METABOLIC PN,CMP] [CHEM] Q4H Lab 04/08/21 10:30 Ordered CMP [COMPREHENSIVE METABOLIC PN,CMP] [CHEM] Q4H Lab 04/08/21 14:30 Ordered CMP [COMPREHENSIVE METABOLIC PN,CMP] [CHEM] Q4H Lab 04/08/21 18:30 Ordered CMP [COMPREHENSIVE METABOLIC PN,CMP] [CHEM] Q4H Lab 04/08/21 22:30 Ordered CMP [COMPREHENSIVE METABOLIC PN,CMP] [CHEM] Q4H Lab 04/09/21 02:30 Ordered Acetaminophen [TylenoL] Med 04/08/21 02:13 Active 975 mg PO Q4H PRN Citalopram [Celexa] Med 04/08/21 09:00 Active 20 mg PO DAILY Dextrose 5%-0.9% NaCl [Dextrose 5%-Normal Saline] 1,000 Med 04/08/21 07:30 Active ml IV ASDIRECTED Fenofibrate Nanocrystallized [Tricor] Med 04/08/21 06:00 Active 145 mg PO DAILY HYDROmorphone [Dilaudid] Med 04/08/21 02:14 Active 1 mg IVPUSH Q2H PRN Insulin Regular, Human [HumuLIN R] 100 unit Med 04/08/21 01:00 Active Sodium Chloride 0.9% [Normal Saline] 99 ml IV TITRATE Multivitamins [Tab-A-Rosina] Med 04/08/21 09:00 Active 1 tab PO DAILY Ondansetron [Zofran] Med 04/08/21 02:10 Active 4 mg IVPUSH Q6H PRN Saccharomyces Boulardii [Florastor] Med 04/08/21 09:00 Active 250 mg PO DAILY Sodium Chloride 0.9% [Saline Flush] Med 04/07/21 20:34 Active 10 ml FLUSH ASDIRECTED PRN Sodium Chloride 23.4% [Sodium Chloride 23.4% INJ] 154 Med 04/08/21 03:15 Active meq Dextrose 10% in Water 1,000 ml IV Q5H amLODIPine [Norvasc] Med 04/09/21 09:00 Active 5 mg PO DAILY hydrALAZINE [Apresoline] Med 04/08/21 06:28 Active 10 mg IVPUSH Q4H PRN ED Antiemetic Medication Reflex [OM.PC] Stat Oth 04/07/21 20:35 Ordered Peripheral IV Insertion Adult [OM.PC] Stat Oth 04/07/21 20:34 Ordered Resuscitation Status Routine Resus Stat 04/08/21 02:17 Ordered Medication Orders Acetaminophen (Acetaminophen 325 Mg Tab) 975 mg PO Q4H PRN PRN Reason: Pain Amlodipine Besylate (Amlodipine 5 Mg Tab) 5 mg PO DAILY [facility] Citalopram Hydrobromide (Citalopram 20 Mg Tab) 20 mg PO DAILY [facility] Fenofibrate (Fenofibrate Nanocrystallized 145 Mg Tab) 145 mg PO DAILY ANAMARIA Last Admin: 04/08/21 06:54 Dose: 145 mg Documented by: KVNG Hydralazine HCl (Hydralazine 20 Mg/Ml Sdv) 10 mg IVPUSH Q4H PRN PRN Reason: If sustaining SBP > 180mmHg Hydromorphone HCl (Hydromorphone 1 Mg/Ml Syringe) 1 mg IVPUSH Q2H PRN PRN Reason: Pain Last Admin: 04/08/21 07:48 Dose: 1 mg Documented by: Admin: 04/08/21 05:43 Dose: 1 mg Documented by: Admin: 04/08/21 02:38 Dose: 1 mg Documented by: KVNG Insulin Human Regular 100 unit (/ Sodium Chloride) 100 mls @ 2 mls/hr IV TITRATE ANAMARIA; Protocol Last Titration: 04/08/21 06:41 Dose: 6.8 unit/hr, 6.8 mls/hr Documented by: KVNG Cosigned by: LOTUS Titration: 04/08/21 05:35 Dose: 4.5 unit/hr, 4.5 mls/hr Documented by: KVNG Hiltonigned by: LOTUS Titration: 04/08/21 04:33 Dose: 3 unit/hr, 3 mls/hr Documented by: KVNG Hiltonigned by: KAITLYNN Admin: 04/08/21 03:32 Dose: 2 unit/hr, 2 mls/hr Documented by: KVNG Hiltonigned by: KAITLYNN Sodium Chloride 154 meq/ (Dextrose/Water) 1,038.5 mls @ 200 mls/hr IV Q5H ANAMARIA Last Admin: 04/08/21 03:32 Dose: 200 mls/hr Documented by: KVNG Dextrose/Sodium Chloride (Dextrose 5%-Normal Saline) 1,000 mls @ 200 mls/hr IV ASDIRECTED ANAMARIA Last Admin: 04/08/21 07:45 Dose: 200 mls/hr Documented by: DANY Multivitamins/Minerals/Vitamin C (Multivitamin Tab) 1 tab PO DAILY ANAMARIA Ondansetron HCl (Ondansetron 4 Mg/2 Ml Sdv) 4 mg IVPUSH Q6H PRN PRN Reason: Nausea Last Admin: 04/08/21 05:43 Dose: 4 mg Documented by: KVNG Saccharomyces Boulardii (Saccharomyces Boulardii (Probiotic) 250 Mg Cap) 250 mg PO DAILY ANAMARIA Sodium Chloride (Sodium Chloride 0.9% 10 Ml Syringe) 10 ml FLUSH ASDIRECTED PRN PRN Reason: Keep Vein Open Last Admin: 04/07/21 20:51 Dose: 10 ml Documented by: [email or web address] Assessment/Plan Comment:: 30-year-old male with a relatively benign past medical history who presents to the [facility] emergency department with upper abdominal pain. Found to have acute pancreatitis likely secondary to profound hypertriglyceridemia. Perhaps also a new diabetic. 1. Acute pancreatitis likely secondary to hypertriglyceridemia. Patient has been admitted to the internal medicine service for now. Continue aggressive crystalloid infusion along with dextrose at high rate. Continue insulin infusion as per protocol. Repeat chemistries every 4 hours. As previously described, awaiting bed for transfer at [facility]. Patient requires apheresis. Pain and symptomatic control as needed. TriCor started this morning. 2. Hyperglycemia. High suspect for new diagnosis of diabetes mellitus. Hemoglobin A1c cannot be measured due to alkalotic his blood is. Plan as above for now. Repeat VBG 3. Hypertension. Patient has been started on Norvasc 5 mg p.o. daily. As needed hydralazine if sustaining above 180 mmHg. 4. Morbid obesity. Lifestyle changes. Dietary discretion. Dietary consult. CODE STATUS: Full code. DVT prophylaxis with heparin.
[2021-04-08] MEDS ORDERED: Citalopram 20 MG Tab PO SCH (09:00)
[2021-04-08] MEDS ORDERED: Saccharomyces Boulardii (Probiotic) 250 MG Cap PO SCH (09:00)
[2021-04-08] MEDS ORDERED: Multivitamin Tab PO SCH (09:00)
--- NOTE | 2021-04-08 12:28 | PCM.DCSUM1 ---
Discharge Summary - Hospital Course Free Text/Narrative:: 30-year-old male with a relatively benign past medical history who presents to the [facility] emergency department with upper abdominal pain. Found to have acute pancreatitis likely secondary to profound hypertriglyceridemia. Perhaps also a new diabetic. 1. Acute pancreatitis likely secondary to hypertriglyceridemia. Patient was admitted to the internal medicine service. Continued aggressive crystalloid infusion along with dextrose at high rate. Continued insulin infusion as per protocol. Repeated chemistries every 4 hours, with no success of receiving pertinent data as blood draws were too chylotic for the instrument to analyze. Patient requires apheresis. Pain and symptomatic control as needed. [facility] started this morning. Case discussed with Ike Slaughter and will be urgently transferred to higher level of care for apheresis. 2. Hyperglycemia. High suspect for new diagnosis of diabetes mellitus. Hemoglobin A1c cannot be measured due to chylotic his blood is. Plan as above for now. Repeat VBGs not showing acidosis. 3. Hypertension. Patient had been started on Norvasc 5 mg p.o. daily. As needed hydralazine if sustaining above 180 mmHg. 4. Morbid obesity. Lifestyle changes. Dietary discretion. Dietary consult. CODE STATUS: Full code. DVT prophylaxis with heparin. Inpatient billing code: Admit/Discharge Same Day HPI Initial Comments: Please see History and physical from earlier this morning for detailed timeline from this morning. Thank You Much. - Discharge Data Discharge Date: 04/08/21 Discharge Disposition: DC/Tfer to Acute Hospital 02 Condition: Critical - Referral to Home Health Primary Care Physician: Skip Squires PA-C - Discharge Plan *PRESCRIPTION DRUG MONITORING PROGRAM REVIEWED*: Not Applicable *COPY OF PRESCRIPTION DRUG MONITORING REPORT IN PATIENT NAMAN: Not Applicable Home Medications: Home Meds Escitalopram Oxalate [Lexapro] 10 mg PO DAILY 04/07/21 [History] Multivitamin 1 each PO DAILY 04/07/21 [History] Fenofibrate Nanocrystallized [Tricor] 145 mg PO DAILY tablet 04/08/21 [Rx] Forms: ED Department Discharge Referrals: Skip Squires PA-C [Primary Care Provider] - - Discharge Summary/Plan Comment DC Time >30 min.: Yes Total # of Minutes for Discharge Time: 2 hours. - General Info Date of Service: 04/08/21 Admission Dx/Problem (Free Text: Admission Diagnosis/Problem Admission Diagnosis/Problem Hypertriglyceridemia and Acute pancreatitis Subjective Update: No subjective changes. Still complaining of constant abdominal pain, which is controlled with narcotics. - Patient Data Vitals - Most Recent: Last Vital Signs Temp 96.9 F 04/08/21 12:08 Pulse 92 04/08/21 12:08 Resp 18 04/08/21 12:08 BP 151/91 H 04/08/21 12:07 Pulse Ox 100 04/08/21 12:08 Weight - Most Recent: 356 lb 12.8 oz Lab Results - Last 24 hrs: Laboratory Results - last 24 hr 04/07/21 04/07/21 04/07/21 Range/Units 20:41 20:41 20:41 WBC 9.82 H (4.23-9.07) K/mm3 RBC 5.00 (4.63-6.08) M/mm3 Hgb 18.1 H (13.7-17.5) gm/dl Hct 42.2 (40.1-51.0) % MCV 84.4 (79.0-92.2) fl MCH 36.2 H (25.7-32.2) pg MCHC 42.9 H (32.2-35.5) g/dl RDW Std Deviation 40.9 (35.1-43.9) fL Plt Count 329 (163-337) K/mm3 MPV 10.2 (9.4-12.3) fl Neut % (Auto) 69.8 H (34.0-67.9) % Lymph % (Auto) 6.4 L (21.8-53.1) % [place] % (Auto) 21.4 H (5.3-12.2) % Eos % (Auto) 1.7 (0.8-7.0) Baso % (Auto) 0.4 (0.1-1.2) % Neut # (Auto) 6.85 H (1.78-5.38) K/mm3 Lymph # (Auto) 0.63 L (1.32-3.57) K/mm3 [place] # (Auto) 2.10 H (0.30-0.82) K/mm3 Eos # (Auto) 0.17 (0.04-0.54) K/mm3 Baso # (Auto) 0.04 (0.01-0.08) K/mm3 Manual Slide Review Abnormal smear VBG pH (7.30-7.40) VBG pCO2 (41-51) mmHg VBG pO2 (40-80) mmHG VBG HCO3 (22-26) meq/L VBG O2 Saturation VBG Base Excess (-4.0-2.0) O2 Delivery Device Oxygen Flow Rate Sodium 126 L (136-145) mEq/L Potassium 3.7 (3.5-5.1) mEq/L Chloride 90 L (98-107) mEq/L Carbon Dioxide TNP Anion Gap TNP BUN TNP Creatinine TNP Est Cr Clr Drug Dosing TNP Estimated GFR (MDRD) TNP BUN/Creatinine Ratio TNP Glucose 471 H* (70-99) mg/dL POC Glucose (70-99) mg/dL Hemoglobin A1c TNP Calcium TNP Total Bilirubin TNP AST TNP ALT TNP Alkaline Phosphatase TNP Total Protein TNP Albumin TNP Globulin TNP Albumin/Globulin Ratio TNP Triglycerides Cholesterol LDL Cholesterol Direct (<100) mg/dL HDL Cholesterol Lipase 643 H (73-393) U/L TSH 3rd Generation (0.358-3.74) uIU/mL Urine Color (Yellow) Urine Appearance (Clear) Urine pH (5.0-8.0) Ur Specific [place] (1.005-1.030) Urine Protein (Negative) Urine Glucose (UA) (Negative) Urine Ketones (Negative) Urine Occult Blood (Negative) Urine Nitrite (Negative) Urine Bilirubin (Negative) Urine Urobilinogen (0.2-1.0) Ur Leukocyte Esterase (Negative) U Hyaline Cast (Auto) (0-5) /lpf Urine RBC (0-5) /hpf Urine WBC (0-5) /hpf Ur Squamous Epith Cells (0-5) /hpf Amorphous Sediment (NOT SEEN) /hpf Urine Bacteria (FEW) /hpf Urine Mucus (FEW) /hpf SARS-CoV-2 RNA (RENATA) (NEGATIVE) 04/07/21 04/07/21 04/08/21 Range/Units 20:43 23:40 00:21 WBC (4.23-9.07) K/mm3 RBC (4.63-6.08) M/mm3 Hgb (13.7-17.5) gm/dl Hct (40.1-51.0) % MCV (79.0-92.2) fl MCH (25.7-32.2) pg MCHC (32.2-35.5) g/dl RDW Std Deviation (35.1-43.9) fL Plt Count (163-337) K/mm3 MPV (9.4-12.3) fl Neut % (Auto) (34.0-67.9) % Lymph % (Auto) (21.8-53.1) % [place] % (Auto) (5.3-12.2) % Eos % (Auto) (0.8-7.0) Baso % (Auto) (0.1-1.2) % Neut # (Auto) (1.78-5.38) K/mm3 Lymph # (Auto) (1.32-3.57) K/mm3 [place] # (Auto) (0.30-0.82) K/mm3 Eos # (Auto) (0.04-0.54) K/mm3 Baso # (Auto) (0.01-0.08) K/mm3 Manual Slide Review VBG pH 7.37 (7.30-7.40) VBG pCO2 (41-51) mmHg VBG pO2 (40-80) mmHG VBG HCO3 (22-26) meq/L VBG O2 Saturation VBG Base Excess (-4.0-2.0) O2 Delivery Device Oxygen Flow Rate Sodium (136-145) mEq/L Potassium (3.5-5.1) mEq/L Chloride (98-107) mEq/L Carbon Dioxide Anion Gap BUN Creatinine Est Cr Clr Drug Dosing Estimated GFR (MDRD) BUN/Creatinine Ratio Glucose (70-99) mg/dL POC Glucose 246 H (70-99) mg/dL Hemoglobin A1c Calcium Total Bilirubin AST ALT Alkaline Phosphatase Total Protein Albumin Globulin Albumin/Globulin Ratio Triglycerides Cholesterol LDL Cholesterol Direct (<100) mg/dL HDL Cholesterol Lipase (73-393) U/L TSH 3rd Generation (0.358-3.74) uIU/mL Urine Color Yellow (Yellow) Urine Appearance Clear (Clear) Urine pH 5.5 (5.0-8.0) Ur Specific [place] > or = 1.030 (1.005-1.030) Urine Protein 2+ H (Negative) Urine Glucose (UA) 2+ H (Negative) Urine Ketones 1+ H (Negative) Urine Occult Blood Trace-intact H (Negative) Urine Nitrite Negative (Negative) Urine Bilirubin Negative (Negative) Urine Urobilinogen 0.2 (0.2-1.0) Ur Leukocyte Esterase Negative (Negative) U Hyaline Cast (Auto) 0-5 (0-5) /lpf Urine RBC 5-10 H (0-5) /hpf Urine WBC 0-5 (0-5) /hpf Ur Squamous Epith Cells 0-5 (0-5) /hpf Amorphous Sediment Few H (NOT SEEN) /hpf Urine Bacteria Few (FEW) /hpf Urine Mucus Few (FEW) /hpf SARS-CoV-2 RNA (RENATA) (NEGATIVE) 04/08/21 04/08/21 04/08/21 Range/Units 00:27 00:29 00:36 WBC (4.23-9.07) K/mm3 RBC (4.63-6.08) M/mm3 Hgb (13.7-17.5) gm/dl Hct (40.1-51.0) % MCV (79.0-92.2) fl MCH (25.7-32.2) pg MCHC (32.2-35.5) g/dl RDW Std Deviation (35.1-43.9) fL Plt Count (163-337) K/mm3 MPV (9.4-12.3) fl Neut % (Auto) (34.0-67.9) % Lymph % (Auto) (21.8-53.1) % [place] % (Auto) (5.3-12.2) % Eos % (Auto) (0.8-7.0) Baso % (Auto) (0.1-1.2) % Neut # (Auto) (1.78-5.38) K/mm3 Lymph # (Auto) (1.32-3.57) K/mm3 [place] # (Auto) (0.30-0.82) K/mm3 Eos # (Auto) (0.04-0.54) K/mm3 Baso # (Auto) (0.01-0.08) K/mm3 Manual Slide Review VBG pH (7.30-7.40) VBG pCO2 (41-51) mmHg VBG pO2 (40-80) mmHG VBG HCO3 (22-26) meq/L VBG O2 Saturation VBG Base Excess (-4.0-2.0) O2 Delivery Device Oxygen Flow Rate Sodium (136-145) mEq/L Potassium (3.5-5.1) mEq/L Chloride (98-107) mEq/L Carbon Dioxide Anion Gap BUN Creatinine Est Cr Clr Drug Dosing Estimated GFR (MDRD) BUN/Creatinine Ratio Glucose (70-99) mg/dL POC Glucose (70-99) mg/dL Hemoglobin A1c Calcium Total Bilirubin AST ALT Alkaline Phosphatase Total Protein Albumin Globulin Albumin/Globulin Ratio Triglycerides TNP Cholesterol TNP LDL Cholesterol Direct 137 H* (<100) mg/dL HDL Cholesterol TNP Lipase (73-393) U/L TSH 3rd Generation 2.728 (0.358-3.74) uIU/mL Urine Color (Yellow) Urine Appearance (Clear) Urine pH (5.0-8.0) Ur Specific [place] (1.005-1.030) Urine Protein (Negative) Urine Glucose (UA) (Negative) Urine Ketones (Negative) Urine Occult Blood (Negative) Urine Nitrite (Negative) Urine Bilirubin (Negative) Urine Urobilinogen (0.2-1.0) Ur Leukocyte Esterase (Negative) U Hyaline Cast (Auto) (0-5) /lpf Urine RBC (0-5) /hpf Urine WBC (0-5) /hpf Ur Squamous Epith Cells (0-5) /hpf Amorphous Sediment (NOT SEEN) /hpf Urine Bacteria (FEW) /hpf Urine Mucus (FEW) /hpf SARS-CoV-2 RNA (RENATA) Negative (NEGATIVE) 04/08/21 04/08/21 04/08/21 Range/Units 03:37 04:31 05:33 WBC (4.23-9.07) K/mm3 RBC (4.63-6.08) M/mm3 Hgb (13.7-17.5) gm/dl Hct (40.1-51.0) % MCV (79.0-92.2) fl MCH (25.7-32.2) pg MCHC (32.2-35.5) g/dl RDW Std Deviation (35.1-43.9) fL Plt Count (163-337) K/mm3 MPV (9.4-12.3) fl Neut % (Auto) (34.0-67.9) % Lymph % (Auto) (21.8-53.1) % [place] % (Auto) (5.3-12.2) % Eos % (Auto) (0.8-7.0) Baso % (Auto) (0.1-1.2) % Neut # (Auto) (1.78-5.38) K/mm3 Lymph # (Auto) (1.32-3.57) K/mm3 [place] # (Auto) (0.30-0.82) K/mm3 Eos # (Auto) (0.04-0.54) K/mm3 Baso # (Auto) (0.01-0.08) K/mm3 Manual Slide Review VBG pH (7.30-7.40) VBG pCO2 (41-51) mmHg VBG pO2 (40-80) mmHG VBG HCO3 (22-26) meq/L VBG O2 Saturation VBG Base Excess (-4.0-2.0) O2 Delivery Device Oxygen Flow Rate Sodium (136-145) mEq/L Potassium (3.5-5.1) mEq/L Chloride (98-107) mEq/L Carbon Dioxide Anion Gap BUN Creatinine Est Cr Clr Drug Dosing Estimated GFR (MDRD) BUN/Creatinine Ratio Glucose (70-99) mg/dL POC Glucose 272 H 322 H 333 H (70-99) mg/dL Hemoglobin A1c Calcium Total Bilirubin AST ALT Alkaline Phosphatase Total Protein Albumin Globulin Albumin/Globulin Ratio Triglycerides Cholesterol LDL Cholesterol Direct (<100) mg/dL HDL Cholesterol Lipase (73-393) U/L TSH 3rd Generation (0.358-3.74) uIU/mL Urine Color (Yellow) Urine Appearance (Clear) Urine pH (5.0-8.0) Ur Specific [place] (1.005-1.030) Urine Protein (Negative) Urine Glucose (UA) (Negative) Urine Ketones (Negative) Urine Occult Blood (Negative) Urine Nitrite (Negative) Urine Bilirubin (Negative) Urine Urobilinogen (0.2-1.0) Ur Leukocyte Esterase (Negative) U Hyaline Cast (Auto) (0-5) /lpf Urine RBC (0-5) /hpf Urine WBC (0-5) /hpf Ur Squamous Epith Cells (0-5) /hpf Amorphous Sediment (NOT SEEN) /hpf Urine Bacteria (FEW) /hpf Urine Mucus (FEW) /hpf SARS-CoV-2 RNA (RENATA) (NEGATIVE) 04/08/21 04/08/21 04/08/21 Range/Units 06:36 06:41 06:41 WBC (4.23-9.07) K/mm3 RBC (4.63-6.08) M/mm3 Hgb (13.7-17.5) gm/dl Hct (40.1-51.0) % MCV (79.0-92.2) fl MCH (25.7-32.2) pg MCHC (32.2-35.5) g/dl RDW Std Deviation (35.1-43.9) fL Plt Count (163-337) K/mm3 MPV (9.4-12.3) fl Neut % (Auto) (34.0-67.9) % Lymph % (Auto) (21.8-53.1) % [place] % (Auto) (5.3-12.2) % Eos % (Auto) (0.8-7.0) Baso % (Auto) (0.1-1.2) % Neut # (Auto) (1.78-5.38) K/mm3 Lymph # (Auto) (1.32-3.57) K/mm3 [place] # (Auto) (0.30-0.82) K/mm3 Eos # (Auto) (0.04-0.54) K/mm3 Baso # (Auto) (0.01-0.08) K/mm3 Manual Slide Review VBG pH (7.30-7.40) VBG pCO2 (41-51) mmHg VBG pO2 (40-80) mmHG VBG HCO3 (22-26) meq/L VBG O2 Saturation VBG Base Excess (-4.0-2.0) O2 Delivery Device Oxygen Flow Rate Sodium 130 L (136-145) mEq/L Potassium 3.8 (3.5-5.1) mEq/L Chloride 96 L (98-107) mEq/L Carbon Dioxide TNP Anion Gap TNP BUN TNP Creatinine TNP Est Cr Clr Drug Dosing TNP Estimated GFR (MDRD) TNP BUN/Creatinine Ratio TNP Glucose 523 H* (70-99) mg/dL POC Glucose 331 H (70-99) mg/dL Hemoglobin A1c Calcium TNP Total Bilirubin TNP AST TNP ALT TNP Alkaline Phosphatase TNP Total Protein TNP Albumin TNP Globulin TNP Albumin/Globulin Ratio TNP Triglycerides Cholesterol LDL Cholesterol Direct (<100) mg/dL HDL Cholesterol Lipase 99608 H (73-393) U/L TSH 3rd Generation (0.358-3.74) uIU/mL Urine Color (Yellow) Urine Appearance (Clear) Urine pH (5.0-8.0) Ur Specific [place] (1.005-1.030) Urine Protein (Negative) Urine Glucose (UA) (Negative) Urine Ketones (Negative) Urine Occult Blood (Negative) Urine Nitrite (Negative) Urine Bilirubin (Negative) Urine Urobilinogen (0.2-1.0) Ur Leukocyte Esterase (Negative) U Hyaline Cast (Auto) (0-5) /lpf Urine RBC (0-5) /hpf Urine WBC (0-5) /hpf Ur Squamous Epith Cells (0-5) /hpf Amorphous Sediment (NOT SEEN) /hpf Urine Bacteria (FEW) /hpf Urine Mucus (FEW) /hpf SARS-CoV-2 RNA (RENATA) (NEGATIVE) 04/08/21 04/08/21 04/08/21 Range/Units 07:31 08:24 09:00 WBC (4.23-9.07) K/mm3 RBC (4.63-6.08) M/mm3 Hgb (13.7-17.5) gm/dl Hct (40.1-51.0) % MCV (79.0-92.2) fl MCH (25.7-32.2) pg MCHC (32.2-35.5) g/dl RDW Std Deviation (35.1-43.9) fL Plt Count (163-337) K/mm3 MPV (9.4-12.3) fl Neut % (Auto) (34.0-67.9) % Lymph % (Auto) (21.8-53.1) % [place] % (Auto) (5.3-12.2) % Eos % (Auto) (0.8-7.0) Baso % (Auto) (0.1-1.2) % Neut # (Auto) (1.78-5.38) K/mm3 Lymph # (Auto) (1.32-3.57) K/mm3 [place] # (Auto) (0.30-0.82) K/mm3 Eos # (Auto) (0.04-0.54) K/mm3 Baso # (Auto) (0.01-0.08) K/mm3 Manual Slide Review VBG pH 7.38 (7.30-7.40) VBG pCO2 42.8 (41-51) mmHg VBG pO2 62.0 (40-80) mmHG VBG HCO3 24.4 (22-26) meq/L VBG O2 Saturation 90.2 VBG Base Excess -0.4 (-4.0-2.0) O2 Delivery Device Room air Oxygen Flow Rate 0.0 Sodium (136-145) mEq/L Potassium (3.5-5.1) mEq/L Chloride (98-107) mEq/L Carbon Dioxide Anion Gap BUN Creatinine Est Cr Clr Drug Dosing Estimated GFR (MDRD) BUN/Creatinine Ratio Glucose (70-99) mg/dL POC Glucose 314 H 332 H (70-99) mg/dL Hemoglobin A1c Calcium Total Bilirubin AST ALT Alkaline Phosphatase Total Protein Albumin Globulin Albumin/Globulin Ratio Triglycerides Cholesterol LDL Cholesterol Direct (<100) mg/dL HDL Cholesterol Lipase (73-393) U/L TSH 3rd Generation (0.358-3.74) uIU/mL Urine Color (Yellow) Urine Appearance (Clear) Urine pH (5.0-8.0) Ur Specific [place] (1.005-1.030) Urine Protein (Negative) Urine Glucose (UA) (Negative) Urine Ketones (Negative) Urine Occult Blood (Negative) Urine Nitrite (Negative) Urine Bilirubin (Negative) Urine Urobilinogen (0.2-1.0) Ur Leukocyte Esterase (Negative) U Hyaline Cast (Auto) (0-5) /lpf Urine RBC (0-5) /hpf Urine WBC (0-5) /hpf Ur Squamous Epith Cells (0-5) /hpf Amorphous Sediment (NOT SEEN) /hpf Urine Bacteria (FEW) /hpf Urine Mucus (FEW) /hpf SARS-CoV-2 RNA (RENATA) (NEGATIVE) 04/08/21 04/08/21 04/08/21 Range/Units 09:32 10:19 10:49 WBC (4.23-9.07) K/mm3 RBC (4.63-6.08) M/mm3 Hgb (13.7-17.5) gm/dl Hct (40.1-51.0) % MCV (79.0-92.2) fl MCH (25.7-32.2) pg MCHC (32.2-35.5) g/dl RDW Std Deviation (35.1-43.9) fL Plt Count (163-337) K/mm3 MPV (9.4-12.3) fl Neut % (Auto) (34.0-67.9) % Lymph % (Auto) (21.8-53.1) % [place] % (Auto) (5.3-12.2) % Eos % (Auto) (0.8-7.0) Baso % (Auto) (0.1-1.2) % Neut # (Auto) (1.78-5.38) K/mm3 Lymph # (Auto) (1.32-3.57) K/mm3 [place] # (Auto) (0.30-0.82) K/mm3 Eos # (Auto) (0.04-0.54) K/mm3 Baso # (Auto) (0.01-0.08) K/mm3 Manual Slide Review VBG pH (7.30-7.40) VBG pCO2 (41-51) mmHg VBG pO2 (40-80) mmHG VBG HCO3 (22-26) meq/L VBG O2 Saturation VBG Base Excess (-4.0-2.0) O2 Delivery Device Oxygen Flow Rate Sodium 131 L (136-145) mEq/L Potassium 3.7 (3.5-5.1) mEq/L Chloride 96 L (98-107) mEq/L Carbon Dioxide 8 L* Anion Gap 30.7 H BUN TNP Creatinine TNP Est Cr Clr Drug Dosing TNP Estimated GFR (MDRD) TNP BUN/Creatinine Ratio TNP Glucose 421 H* (70-99) mg/dL POC Glucose 278 H 288 H (70-99) mg/dL Hemoglobin A1c Calcium TNP Total Bilirubin TNP AST TNP ALT TNP Alkaline Phosphatase TNP Total Protein TNP Albumin TNP Globulin TNP Albumin/Globulin Ratio TNP Triglycerides Cholesterol LDL Cholesterol Direct (<100) mg/dL HDL Cholesterol Lipase (73-393) U/L TSH 3rd Generation (0.358-3.74) uIU/mL Urine Color (Yellow) Urine Appearance (Clear) Urine pH (5.0-8.0) Ur Specific [place] (1.005-1.030) Urine Protein (Negative) Urine Glucose (UA) (Negative) Urine Ketones (Negative) Urine Occult Blood (Negative) Urine Nitrite (Negative) Urine Bilirubin (Negative) Urine Urobilinogen (0.2-1.0) Ur Leukocyte Esterase (Negative) U Hyaline Cast (Auto) (0-5) /lpf Urine RBC (0-5) /hpf Urine WBC (0-5) /hpf Ur Squamous Epith Cells (0-5) /hpf Amorphous Sediment (NOT SEEN) /hpf Urine Bacteria (FEW) /hpf Urine Mucus (FEW) /hpf SARS-CoV-2 RNA (RENATA) (NEGATIVE) 04/08/21 Range/Units 11:12 WBC (4.23-9.07) K/mm3 RBC (4.63-6.08) M/mm3 Hgb (13.7-17.5) gm/dl Hct (40.1-51.0) % MCV (79.0-92.2) fl MCH (25.7-32.2) pg MCHC (32.2-35.5) g/dl RDW Std Deviation (35.1-43.9) fL Plt Count (163-337) K/mm3 MPV (9.4-12.3) fl Neut % (Auto) (34.0-67.9) % Lymph % (Auto) (21.8-53.1) % [place] % (Auto) (5.3-12.2) % Eos % (Auto) (0.8-7.0) Baso % (Auto) (0.1-1.2) % Neut # (Auto) (1.78-5.38) K/mm3 Lymph # (Auto) (1.32-3.57) K/mm3 [place] # (Auto) (0.30-0.82) K/mm3 Eos # (Auto) (0.04-0.54) K/mm3 Baso # (Auto) (0.01-0.08) K/mm3 Manual Slide Review VBG pH (7.30-7.40) VBG pCO2 (41-51) mmHg VBG pO2 (40-80) mmHG VBG HCO3 (22-26) meq/L VBG O2 Saturation VBG Base Excess (-4.0-2.0) O2 Delivery Device Oxygen Flow Rate Sodium (136-145) mEq/L Potassium (3.5-5.1) mEq/L Chloride (98-107) mEq/L Carbon Dioxide Anion Gap BUN Creatinine Est Cr Clr Drug Dosing Estimated GFR (MDRD) BUN/Creatinine Ratio Glucose (70-99) mg/dL POC Glucose 296 H (70-99) mg/dL Hemoglobin A1c Calcium Total Bilirubin AST ALT Alkaline Phosphatase Total Protein Albumin Globulin Albumin/Globulin Ratio Triglycerides Cholesterol LDL Cholesterol Direct (<100) mg/dL HDL Cholesterol Lipase (73-393) U/L TSH 3rd Generation (0.358-3.74) uIU/mL Urine Color (Yellow) Urine Appearance (Clear) Urine pH (5.0-8.0) Ur Specific [place] (1.005-1.030) Urine Protein (Negative) Urine Glucose (UA) (Negative) Urine Ketones (Negative) Urine Occult Blood (Negative) Urine Nitrite (Negative) Urine Bilirubin (Negative) Urine Urobilinogen (0.2-1.0) Ur Leukocyte Esterase (Negative) U Hyaline Cast (Auto) (0-5) /lpf Urine RBC (0-5) /hpf Urine WBC (0-5) /hpf Ur Squamous Epith Cells (0-5) /hpf Amorphous Sediment (NOT SEEN) /hpf Urine Bacteria (FEW) /hpf Urine Mucus (FEW) /hpf SARS-CoV-2 RNA (RENATA) (NEGATIVE) Med Orders - Current: Current Medications Acetaminophen (Acetaminophen 325 Mg Tab) 975 mg PO Q4H PRN PRN Reason: Pain Amlodipine Besylate (Amlodipine 5 Mg Tab) [address] [facility] Citalopram Hydrobromide (Citalopram 20 Mg Tab) [address] [facility] Last Admin: 04/08/21 08:40 Dose: 20 mg Documented by: Fenofibrate (Fenofibrate Nanocrystallized 145 Mg Tab) [address] [facility] Last Admin: 04/08/21 06:54 Dose: 145 mg Documented by: Hydralazine HCl (Hydralazine 20 Mg/Ml Sdv) 10 mg IVPUSH Q4H PRN PRN Reason: If sustaining SBP > 180mmHg Hydromorphone HCl (Hydromorphone 1 Mg/Ml Syringe) 2 mg IVPUSH Q4H PRN PRN Reason: Pain Last Admin: 04/08/21 11:11 Dose: 2 mg Documented by: Insulin Human Regular 100 unit (/ Sodium Chloride) 100 mls @ 2 mls/hr IV TITRATE [facility]; Protocol Last Titration: 04/08/21 11:19 Dose: 23 unit/hr, 23 mls/hr Documented by: Dextrose/Sodium Chloride (Dextrose 5%-Normal Saline) 1,000 mls @ 300 mls/hr IV ASDIRECTED [facility] Last Admin: 04/08/21 12:03 Dose: 300 mls/hr Documented by: Multivitamins/Minerals/Vitamin C (Multivitamin Tab) [address] [facility] Last Admin: 04/08/21 08:40 Dose: 1 tab Documented by: Ondansetron HCl (Ondansetron 4 Mg/2 Ml Sdv) 4 mg IVPUSH Q6H PRN PRN Reason: Nausea Last Admin: 04/08/21 05:43 Dose: 4 mg Documented by: Saccharomyces Boulardii (Saccharomyces Boulardii (Probiotic) 250 Mg Cap) [address] [facility] Last Admin: 04/08/21 08:40 Dose: 250 mg Documented by: Sodium Chloride (Sodium Chloride 0.9% 10 Ml Syringe) 10 ml FLUSH ASDIRECTED PRN PRN Reason: Keep Vein Open Last Admin: 04/07/21 20:51 Dose: 10 ml Documented by: Discontinued Medications Amlodipine Besylate (Amlodipine 5 Mg Tab) 5 mg PO ONETIME ONE Stop: 04/08/21 06:46 Last Admin: 04/08/21 06:55 Dose: 5 mg Documented by: Hydromorphone HCl (Hydromorphone 1 Mg/Ml Syringe) 1 mg IVPUSH ONETIME ONE Stop: 04/07/21 20:37 Last Admin: 04/07/21 20:50 Dose: 1 mg Documented by: Hydromorphone HCl (Hydromorphone 1 Mg/Ml Syringe) 1 mg IVPUSH ONETIME ONE Stop: 04/08/21 00:16 Last Admin: 04/08/21 00:22 Dose: 1 mg Documented by: Hydromorphone HCl (Hydromorphone 1 Mg/Ml Syringe) 1 mg IVPUSH Q2H PRN PRN Reason: Pain Last Admin: 04/08/21 09:29 Dose: 1 mg Documented by: Sodium Chloride (Normal Saline) 1,000 mls @ 1,000 mls/hr IV .BOLUS STA Stop: 04/07/21 21:33 Last Admin: 04/07/21 20:49 Dose: 1,000 mls/hr Documented by: Sodium Chloride (Normal Saline) Confirm Administered Dose 100 mls @ as directed .ROUTE .STK-MED ONE Stop: 04/08/21 01:05 Last Admin: 04/08/21 04:07 Dose: Not Given Documented by: Sodium Chloride 154 meq/ (Dextrose/Water) 1,038.5 mls @ 200 mls/hr IV ASDIRE CTED ANAMARIA Sodium Chloride 154 meq/ (Dextrose/Water) 1,038.5 mls @ 200 mls/hr IV Q5H ANAMARIA Last Admin: 04/08/21 09:00 Dose: Not Given Documented by: Dextrose/Sodium Chloride (Dextrose 5%-Normal Saline) 1,000 mls @ 200 mls/hr IV ASDIRECTED ANAMARIA Last Infusion: 04/08/21 10:30 Dose: 300 mls/hr Documented by: Insulin Human Regular (Insulin Regular, Human 100 Units/Ml 3 Ml Vial) 10 unit SUBCUT ONETIME ONE Stop: 04/07/21 22:57 Last Admin: 04/07/21 23:19 Dose: 10 unit Documented by: Ondansetron HCl (Ondansetron 4 Mg/2 Ml Sdv) 4 mg IVPUSH ONETIME ONE Stop: 04/07/21 20:35 Last Admin: 04/07/21 20:49 Dose: 4 mg Documented by: - Exam Quality Assessment: Reports: Supplemental Oxygen General: Reports: Alert, No Acute Distress Lungs: Reports: Clear to Auscultation, Normal Respiratory Effort Cardiovascular: Reports: Regular Rate, Regular Rhythm GI/Abdominal Exam: Normal Bowel Sounds, Tender Extremities: Normal Inspection Skin: Reports: Warm Neurological: Reports: No New Focal Deficit
[2021-04-08] MEDS ORDERED: LORazepam 2 MG/ML SDV ONE (13:08)
[2021-04-08] MEDS ORDERED: LORazepam 2 MG/ML SDV IVPUSH ONE (13:19)
[2021-04-09] MEDS ORDERED: amLODIPine 5 MG Tab PO SCH (09:00)
== END 2021-04-08 14:10 | DRG 423 ==
LOC: JD.ED 20:15 → JD.ICU 04-08 01:10
PROVIDERS: ADMIT Hospitalist; ATTEND Hospitalist
DX: E78.1 Pure hyperglyceridemia (principal); K85.80 Other acute pancreatitis without necrosis or infection; E11.65 Type 2 diabetes mellitus with hyperglycemia; E66.01 Morbid (severe) obesity due to excess calories; I10 Essential (primary) hypertension; F41.9 Anxiety disorder, unspecified; F32.9 Major depressive disorder, single episode, unspecified; K76.0 Fatty (change of) liver, not elsewhere classified; Z20.822 Contact with and (suspected) exposure to COVID-19; Z88.0 Allergy status to penicillin; Z79.899 Other long term (current) drug therapy; Z68.42 Body mass index [BMI] 45.0-49.9, adult
CPT/HCPCS: 36415; 74176; 74176-26; 76705; 76705-26; 80053; 80061; 81001; 82800; 82803; 82947; 83036; 83690; 84443; 85025; 96374; 96375; 96376; 99236; 99284; 99285-25; A9270-GY; J1170; J1815-GY; J2060; J2405; J7030; J7042; J7131; U0002